=== PATIENT | female | born 1960 | race Asian ===

== ENCOUNTER 2017-12-26 07:51 | Day surgery (SDC) | payer OTHER ==
[~2017-12-26 07:51] MED LIST: CEFAZOLIN 1 GM INJ; DEXAMETHASONE 4 MG/ML 1 ML INJ; ONDANSETRON 4 MG INJ
[2017-12-26] MEDS ORDERED: BUPIVACAINE 0.5% (SDV) 30 ML INJ (09:24)
[2017-12-26] MEDS ORDERED: LIDOCAINE 1% (MPF) 30 ML INJ (09:24)
[2017-12-26] MEDS ORDERED: MIDAZOLAM 1 MG/ML 2 ML INJ (10:32)
[2017-12-26] MEDS ORDERED: FENTAnyl 50 MCG/ML VIAL ×2 (10:32→12:23)
[2017-12-26] MEDS ORDERED: PROPOFOL 20 ML (10:32)
[2017-12-26] MEDS ORDERED: LIDOCAINE 100 MG SYRINGE (10:32)
[2017-12-26] MEDS ORDERED: ROPIVACAINE 0.5 % 30 ML VIAL (10:33)
[2017-12-26] MEDS ORDERED: METOCLOPRAMIDE 10 MG INJ (10:33)
[2017-12-26] MEDS ORDERED: HYDROmorphONE (0.2 MG/ML) 10ML SYG IV ×2 (13:00)
[2017-12-26] MEDS ORDERED: FENTAnyl 50 MCG/ML VIAL IV (13:00)
[2017-12-26] MEDS: POLYMYXIN/BACITRACIN 1L IRRIG (13:03)
[2017-12-26] MEDS ORDERED: hydrALAzine 20 MG INJ (13:45)
[2017-12-26] MEDS: hydrALAzine 20 MG INJ IV (13:48)
== END 2017-12-26 15:19 | disposition home or self-care (01) ==
LOC: SDS 07:51
DX: S52.572A Other intraarticular fracture of lower end of left radius, initial encounter for closed fracture (principal); G56.02 Carpal tunnel syndrome, left upper limb; R94.31 Abnormal electrocardiogram [ECG] [EKG]; X58.XXXA Exposure to other specified factors, initial encounter; Y93.89 Activity, other specified; Y92.89 Other specified places as the place of occurrence of the external cause; Y99.8 Other external cause status
CPT/HCPCS: 25609; 73090; 93005